=== PATIENT | male | born 1995 | race Caucasian/White ===

== ENCOUNTER 2019-08-12 22:42 | Emergency (ER) | payer SELFPAY ==
[2019-08-12] MEDS ORDERED: LIDOCAINE 1% INJ (10 MG/ML) 10 ML MDV INJ ONE (23:27)
[2019-08-12] MEDS ORDERED: ONDANSETRON 4 MG TAB.RAPDIS PO ONE (23:27)
[2019-08-12] MEDS ORDERED: HYDROCODONE/ACETAMINOPHEN 10-325 MG TABLET PO ONE (23:27)
--- NOTE | 2019-08-12 23:31 | ER Document Report ---
ED Medical Screen (RME) - General Stated Complaint: FINGER LACERATION Primary Care Provider: LAKEISHA CALDERON [Primary Care Provider] - Follow up as needed Notes: Patient is a 24-year-old white male with a history of anxiety who presents to the emergency department with his mother on speaker phone for laceration to the distal finger of the right hand. Patient was sharpening a knife and tried to cut through the lumen and states that it sliced right through into his finger. He states this happened about 45 minutes ago. States that it was wrapped up and compressed in a dressing. He reports his tetanus was updated 5 years ago. States the knife was clean. Patient's mother on the phone requesting Versed sedation of the patient for laceration repair. I have treated and performed a rapid initial assessment of this patient. A comprehensive ED assessment and evaluation of the patient, analysis of test results and completion of medical decision making process will be conducted by additional ED providers. PHYSICAL EXAMINATION: GENERAL: Well-appearing, well-nourished and in no acute distress. A&Ox4. Answers questions appropriately. - Related Data Allergies/Adverse Reactions: beeswax Allergy (Verified 08/12/19 23:23) latex Allergy (Verified 08/12/19 23:23) bees Allergy (Uncoded 08/12/19 23:23) Physical Exam - Vital signs Vitals: Temp Pulse Resp BP Pulse Ox 99.2 F 91 16 130/89 H 97 08/12/19 23:00 08/12/19 23:00 08/12/19 23:00 08/12/19 23:00 08/12/19 23:00 Course - Vital Signs Vital signs: Temp Pulse Resp BP Pulse Ox 99.2 F 91 16 130/89 H 97 08/12/19 23:00 08/12/19 23:00 08/12/19 23:00 08/12/19 23:00 08/12/19 23:00 Doctor's Discharge - Discharge Referrals: LAKEISHA CALDERON [Primary Care Provider] - Follow up as needed
[2019-08-12] MEDS ORDERED: LORAZEPAM INJ 2 MG/1 ML VIAL IM ONE (23:48)
--- NOTE | 2019-08-13 00:11 | ER Document Report ---
ED General - General Chief Complaint: Laceration Stated Complaint: FINGER LACERATION Time Seen by Provider: 08/12/19 23:36 Primary Care Provider: LAKEISHA CALDERON [NO LOCAL MD] - Follow up as needed Notes: 24-year-old male presents emergency department after accidentally cutting the third finger of his right hand with a recently cleaned and sharp and hunting knife while cutting tadeo and limes. Mother states she immediately washed it with Loretta soap and water, wrapped in a pressure dressing and put it on ice. Mother is worried that the patient may need to have his finger surgically reattached. Last tetanus shot was within the past 5 years. No bleeding disorder. Mother is quite concerned because the patient has a history of anxiety and she feels he will likely need Versed or another sedative before any procedures happen. - Related Data Allergies/Adverse Reactions: beeswax Allergy (Verified 08/12/19 23:23) latex Allergy (Verified 08/12/19 23:23) bees Allergy (Uncoded 08/12/19 23:23) Past Medical History - General Information source: Patient, Parent - Social History Smoking Status: Current Every Day Smoker Chew tobacco use (# tins/day): No Frequency of alcohol use: Social Drug Abuse: None Family History: Reviewed & Not Pertinent Review of Systems - Review of Systems Constitutional: No symptoms reported Cardiovascular: No symptoms reported Respiratory: No symptoms reported Musculoskeletal: See HPI Skin: See HPI Hematologic/Lymphatic: No symptoms reported Neurological/Psychological: No symptoms reported Physical Exam - Vital signs Vitals: Temp Pulse Resp BP Pulse Ox 99.2 F 91 16 130/89 H 97 08/12/19 23:00 08/12/19 23:00 08/12/19 23:00 08/12/19 23:00 08/12/19 23:00 Interpretation: Hypertensive - Borderline hypertension - General General appearance: Alert, Anxious In distress: None - HEENT Head: Normocephalic, Atraumatic Eyes: Normal Pupils: PERRL Mucous membranes: Moist - Respiratory Respiratory status: No respiratory distress - Cardiovascular Pulses: Normal: Radial Normal capillary refill: Yes - Neurological Neuro grossly intact: Yes Cognition: Normal Orientation: AAOx4 [place] Coma Scale Eye Opening: Spontaneous [place] Coma Scale Verbal: Oriented [place] Coma Scale Motor: Obeys Commands [place] Coma Scale Total: 15 - Psychological Associated symptoms: Anxious. No: Aggressive, Angry - Skin Notes: 2.5 cm laceration noted from the radial aspect of the distal aspect of the 3rd right digit starting palmarly and extending to the level of the nailbed, barely goes into the base of the nailbednailbed. There is a skin flap noted. Bleeding is controlled at this time. Sensation and perfusion are intact distal to the wound. Able to flex and extend the finger without difficulty. Does not extend into the joint, bone is not visualized, no visualization of tendons or ligaments. Course - Re-evaluation Re-evalutation: 08/13/19 01:33 Given patient's history of severe anxiety and needing to be sedated for other procedures patient was given 2 mg of Ativan IM to help with anxiolysis for the suturing in order to avoid a conscious sedation. Patient did well, was awake and alert the whole time but was no longer hyperventilating. Wound was approximated, will be started on Augmentin. Discharged home. 08/13/19 01:36 As the nailbed is minimally disrupted and it is at the very base I discussed with patient and mother that I felt it would be more traumatic and undermined the integrity of the wound more to remove the nail and suture at the 8 mm to of the nailbed that is disrupted then to simply leave the nail in place as a stabilizing influence. Mother and patient are aware that this may lead to an increased risk of scarring. - Vital Signs Vital signs: Temp Pulse Resp BP Pulse Ox 99.2 F 91 16 130/89 H 97 08/12/19 23:23 08/12/19 23:00 08/12/19 23:00 08/12/19 23:00 08/12/19 23:00 Procedures - Laceration/Wound Repair Right Hand 3rd digit Wound length (cm): 2.5 Wound's Depth, Shape: Flap Laceration pre-procedure: Sterile PPE donned, Sterile drapes applied, Shur-Clens applied Anesthetic type: 1% Lidocaine Volume Anesthetic (mLs): 3 - digital block Wound explored: Clean, No foreign body removed Wound Repaired With: Sutures Suture Size/Type: 5:0, Ethilon Number of Sutures: 6 Layer Closure?: No Post-procedure wound care: Sterile dressing applied Post-procedure NV exam normal: Yes Complications: No Discharge - Discharge Clinical Impression: Laceration of right index finger with damage to nail Qualifiers: Encounter type: initial encounter Foreign body presence: without foreign body Qualified Code(s): S61.310A - Laceration without foreign body of right index finger with damage to nail, initial encounter Condition: Stable Disposition: HOME, SELF-CARE Additional Instructions: Laceration Care Your laceration has been sutured to keep the skin edges aligned during healing. The time of suture removal depends on the nature and location of your cut. Please follow the care instructions the doctor has outlined for you and return for further care, according to the schedule you've been given. Keep the wound and dressing clean. Unless you were told otherwise, you may shower daily, blotting the wound dry with a clean, unused towel. At other times, If the dressing gets wet or blood soaked, remove it and blot the wound dry, then reapply a new dressing. Unless you were instructed otherwise, dressings should be changed at least daily. If any signs of infection occur (swelling, redness, increasing tenderness, red streaks, tender lumps in the armpit or groin above the laceration, or fever), see the doctor immediately. Please have the sutures removed in 5 to 7 days. He may take ibuprofen 800 mg every 8 hours as well as acetaminophen 1000 mg every 6 hours as needed for pain. He should take the antibiotics as directed until they are gone. Prescriptions: Amoxicillin/Potassium Clav [Augmentin 500-125 Tablet] 1 each PO TID #15 tablet Forms: Return to Work
[2019-08-13] MEDS ORDERED: AMOXICILLIN TR/POT CLAVULANATE 500-125 MG TAB PO ONE (01:41)
[2019-08-13 01:54] VITALS: BP 118/71
== END 2019-08-13 02:05 | disposition home or self-care (01) ==
LOC: ER 22:42
DX: S61.310A Laceration without foreign body of right index finger with damage to nail, initial encounter (principal); W26.0XXA Contact with knife, initial encounter; Y93.G9 Activity, other involving cooking and grilling; F41.9 Anxiety disorder, unspecified; F17.200 Nicotine dependence, unspecified, uncomplicated; Z91.030 Bee allergy status; Z91.041 Radiographic dye allergy status
CPT/HCPCS: 99282; 96372; 12001; S0119; J2060